=== PATIENT | female | born 1990 | race Two or more races ===

== ENCOUNTER 2020-07-22 22:12 | Emergency (ER) | payer OTHER ==
--- NOTE | 2020-07-22 23:45 | ER Document Report ---
ED Headache - General Chief Complaint: Headache Stated Complaint: PSYCH PROBLEM Time Seen by Provider: 07/22/20 23:44 Primary Care Provider: [facility] [Provider Group] - Follow up as needed - HPI Notes: Patient is a 29 y/o female who presents with headache for the past two weeks. She describes the headache as bitemporal and intermittent. She states during the episodic headaches she experiences blurred vision, slurred speech, and memory difficulties. She has been seen by her primary care provider for this issue and had full labs done which were all unremarkable. She has been taking excedrin with significant relief. She denies headache currently. Patient has an appointment with neurology on 08/15/2020. She also is requesting psych resources as she states the stress from these headaches is becoming too much. She denies suicidal ideation, homicidal ideation, auditory and visual hallucinations. She denies nausea, vomiting, urinary incontinence, fever, chest pain and shortness of breath. (GET FORD) Past Medical History - General Information source: Patient - Social History Smoking Status: Never Smoker Chew tobacco use (# tins/day): No Frequency of alcohol use: None Drug Abuse: None Family History: Reviewed & Not Pertinent Patient has homicidal ideation: No Review of Systems - Review of Systems Constitutional: No symptoms reported EENT: No symptoms reported Cardiovascular: No symptoms reported Respiratory: No symptoms reported Gastrointestinal: No symptoms reported Genitourinary: No symptoms reported Female Genitourinary: No symptoms reported Musculoskeletal: No symptoms reported Skin: No symptoms reported Hematologic/Lymphatic: No symptoms reported Neurological/Psychological: See HPI Physical Exam - Vital signs Vitals: Temp Pulse Resp BP Pulse Ox 98.6 F 74 16 125/80 99 07/22/20 22:43 07/22/20 22:43 07/22/20 22:43 07/22/20 22:43 07/22/20 22:43 - Notes Notes: PHYSICAL EXAMINATION: VITALS: Vitals reviewed and within normal limits. GENERAL: Well-appearing, well-nourished and in no acute distress. HEAD: Atraumatic, normocephalic. EYES: Pupils equal, round, and reactive to light, extraocular movements intact, sclera anicteric, conjunctiva are normal. ENT: Nares patent. Moist mucous membranes. Oropharynx clear without exudates. NECK: Normal range of motion, supple without lymphadenopathy. LUNGS: Breath sounds clear to auscultation bilaterally and equal. No wheezes, rales, or rhonchi. HEART: Regular, rate, and rhythm without murmurs. ABDOMEN: Soft, nontender, normoactive bowel sounds. No guarding, no rebound. No masses appreciated. EXTREMITIES: Normal range of motion, no pitting or edema. No cyanosis. NEUROLOGICAL: Face symmetric. Tongue protrudes midline. Extraocular motions intact. Pupils are 2 mm and equally reactive. Normal speech, normal gait. 5 out of 5 strength in both the distal and proximal upper and lower extremities bilaterally. Sensation is grossly intact throughout. Finger to nose testing normal. Pronator drift normal. PSYCH: Normal mood, normal affect. SKIN: Warm, Dry, normal turgor, no rashes or lesions noted. (GET FORD) Course - Laboratory Results Critical Laboratory Results Reviewed: No Critical Results - Radiology Results Critical Radiology Results Reviewed: No Critical Results - Re-evaluation Re-evalutation: 07/23/20 05:[address] has resulted at this time and is negative for any acute findings. Patient will be discharged from the emergency department. (WANDA PUCKETT) 07/23/20 00:00 Presentation of a headache that appears to be most consistent with tension versus migrainous type headache. Headache was not maximal in onset, patient has no focal neurologic deficits, no nuchal rigidity, vital signs within normal limits, no papilledema, and patient is overall well in appearance. Patient is requesting psych evaluation and offered to see the psych team. However, she was informed that psych is not available overnight and she would have to wait until morning. Patient declines psych consultation at this time as she does not want to have to stay overnight. She does not IVC criteria as she denies SI, HI and hallucinations. Patient given outpatient resources. Head CT negative with no acute findings. Based on clinical history and examination I do not suspect an acute subarachnoid hemorrhage, dural venous sinus thrombosis, acute meningitis, or intercranial mass. I advised that the patient keep her current appointment with neurology on 08/15/20 and continue to take excedrin as needed. Return precautions and follow up instructions given. Patient understands and is in agreement with the plan. She will be discharged home. (GET FORD) - Vital Signs Vital signs: Temp Pulse Resp BP Pulse Ox 98.3 F 79 16 131/89 H 100 07/23/20 05:33 07/23/20 05:33 07/23/20 05:33 07/23/20 05:33 07/23/20 05:33 Discharge - Discharge Clinical Impression: Headache Qualifiers: Headache type: unspecified Headache chronicity pattern: unspecified pattern Intractability: not intractable Qualified Code(s): R51.9 - Headache, unspecified Condition: Stable Disposition: HOME, SELF-CARE Instructions: Headache ([facility]) Referrals: [facility] [Provider Group] - Follow up as needed
--- NOTE | 2020-07-23 04:57 | RADIOLOGY REPORT (SQ) ---
CT head without contrast on 07/23/2020 at 4:15 AM CLINICAL INDICATION: Headache TECHNIQUE: Multiple axial images are obtained throughout the head without the administration of contrast. This exam was performed according to our departmental dose-optimization program, which includes automated exposure control, adjustment of the mA and/or kV according to patient size and/or use of iterative reconstruction technique. Total DLP is 1043.77 mGy*cm. COMPARISON: None FINDINGS: There is no hydrocephalus. There is no CT evidence of acute infarct. There is no hemorrhage. There are no abnormal extra-axial fluid collections. There is no mass, mass effect or midline shift. No bony abnormality is noted. IMPRESSION: No acute intracranial abnormality.
[2020-07-23 05:33] VITALS: BP 131/89
== END 2020-07-23 05:45 | disposition home or self-care (01) ==
LOC: ER 22:12
DX: R51.9 Headache, unspecified (principal)
CPT/HCPCS: 70450; 99284

== ENCOUNTER 2020-08-07 19:26 | Emergency (ER) | payer OTHER ==
--- NOTE | 2020-08-07 20:34 | ER Document Report ---
ED Medical Screen (RME) - General Chief Complaint: Psych Problem Stated Complaint: PYSCH ISSUES Time Seen by Provider: 08/07/20 20:28 Notes: Patient presents complaining of manic episode and insomnia. Patient states she is not able sleep for the past 5 days. Patient was recently started on Latuda 2 weeks ago at a dose of 40 mg a day. Patient states she was discharged from the mental health facility yesterday. Patient states she called her doctor today and advised them that she felt like she was having problems with the Latuda in the told her she could decrease the dose to 20 mg. Patient denies any suicidal homicidal ideation. I have greeted and performed a rapid initial assessment of this patient. A comprehensive ED assessment and evaluation of the patient, analysis of test results and completion of the medical decision making process will be conducted by additional ED providers. Physical Exam - Vital signs Vitals: Temp Pulse Resp BP Pulse Ox 98.3 F 88 16 128/86 H 96 08/07/20 19:35 08/07/20 19:35 08/07/20 19:35 08/07/20 19:35 08/07/20 19:35 - Psychological Associated symptoms: Normal affect, Normal mood Course - Vital Signs Vital signs: Temp Pulse Resp BP Pulse Ox 98.3 F 88 16 128/86 H 96 08/07/20 19:35 08/07/20 19:35 08/07/20 19:35 08/07/20 19:35 08/07/20 19:35
[2020-08-07 21:55] VITALS: BP 118/80
[2020-08-07 22:00] LABS: ABSOLUTE LYMPHOCYTES (AUTO) 2.3 10^3/uL (0.5-4.7); ABSOLUTE MONOCYTES (AUTO) 0.6 10^3/uL (0.1-1.4); EOSINOPHILS % (AUTO) 0.2 % (0-6); HEMATOCRIT 38.1 % (36.0-47.0); HEMOGLOBIN 13.5 g/dL (12.0-15.5); MEAN CORPUSCULAR HEMOGLOBIN 33.1 pg (27.0-33.4); MEAN CORPUSCULAR HGB CONC 35.4 g/dL (32.0-36.0); RED BLOOD COUNT 4.07 10^6/uL (3.72-5.28); TOTAL CELLS COUNTED % (AUTO) 100 %; WHITE BLOOD COUNT 5.9 10^3/uL (4.0-10.5)
[2020-08-07 22:03] LABS: APPEARANCE,URINE CLEAR; BILIRUBIN,URINE NEGATIVE (NEGATIVE); COLOR,URINE YELLOW; GLUCOSE, URINE NEGATIVE (NEGATIVE); KETONES,URINE TRACE mg/dL (NEGATIVE); LEUKOCYTE ESTERASE,URINE NEGATIVE (NEGATIVE); NITRITE,URINE NEGATIVE (NEGATIVE); PROTEIN,URINE NEGATIVE (NEGATIVE); URINE SPECIFIC GRAVITY 1.013; UROBILINOGEN,URINE NEGATIVE mg/dL (<2.0)
[2020-08-07 22:03] LABS: BASOPHILS % (AUTO) 0.4 % (0-2); LYMPHOCYTES % (AUTO) 38.2 % (13-45); MEAN CORPUSCULAR VOLUME 94 fl (80-97); MONOCYTES % (AUTO) 9.8 % (3-13); PLATELET COUNT 238 10^3/uL (150-450); RED CELL DISTRIBUTION WIDTH 12.6 % (11.5-14.0); SEGMENTED NEUTROPHILS % (AUTO) 51.4 % (42-78)
[2020-08-07 22:27] LABS: ALBUMIN 4.4 g/dL (3.5-5.0); ALKALINE PHOSPHATASE 85 U/L (38-126); ANION GAP 7 (5-19); ASPARTATE AMINO TRANSFERASE 28 U/L (14-36); BILIRUBIN,DIRECT 0.1 mg/dL (0.0-0.4); BILIRUBIN,TOTAL 0.4 mg/dL (0.2-1.3); BLOOD UREA NITROGEN 11 mg/dL (7-20); CALCIUM 9.4 mg/dL (8.4-10.2); CARBON DIOXIDE 27 mmol/L (22-30); CHLORIDE 103 mmol/L (98-107); GLUCOSE 109 mg/dL (75-110); POTASSIUM 4.7 mmol/L (3.6-5.0); TOTAL PROTEIN 7.7 g/dL (6.3-8.2)
[2020-08-07 22:29] LABS: ALCOHOL < 10 mg/dL (NONE DETECTED)
[2020-08-07 22:33] LABS: URINE AMPHETAMINES SCREEN NEGATIVE; URINE BARBITURATES SCREEN NEGATIVE; URINE BENZODIAZEPINES SCREEN NEGATIVE; URINE COCAINE SCREEN NEGATIVE; URINE MARIJUANA (THC) SCREEN NEGATIVE; URINE METHADONE SCREEN NEGATIVE; URINE PHENCYCLIDINE SCREEN NEGATIVE
[2020-08-07] MEDS ORDERED: DIPHENHYDRAMINE HCL 50 MG/ML VIAL IM ONE (22:36)
--- NOTE | 2020-08-07 23:04 | ER Document Report ---
ED General - General Chief Complaint: Psych Problem Stated Complaint: PYSCH ISSUES Time Seen by Provider: 08/07/20 20:28 Mode of Arrival: Ambulatory Information source: Patient Notes: Patient presents to the ER for evaluation of insomnia times approximately 5 days. The patient states she was on Seroquel 2 weeks ago but was taken off and placed on Latuda. She states she has been having difficulty sleeping since they took her off of Seroquel. She denies suicidal or homicidal ideation. She denies auditory or visual hallucinations. She is alert and oriented x4 and has good insight. She was just released from a psychiatric facility after a voluntary stay for bipolar disorder. She states she does have an appointment with her psychiatrist tomorrow morning. She is here asking for help to fall asleep. She does not want any other treatment beyond that. Nursing notes reviewed and past medical, social, and family histories reviewed and validated. TRAVEL OUTSIDE OF THE [place] IN LAST 30 DAYS: No - Related Data Allergies/Adverse Reactions: lamotrigine [From Lamictal] Allergy (Severe, Verified 08/07/20 20:39) Home Medications: 20mg latuda. melatonin Past Medical History - General Information source: Patient - Social History Smoking Status: Never Smoker Chew tobacco use (# tins/day): No Frequency of alcohol use: None Drug Abuse: None Lives with: Family Family History: Reviewed & Not Pertinent Patient has suicidal ideation: No Patient has homicidal ideation: No - Past Medical History Cardiac Medical History: Reports: None Pulmonary Medical History: Reports: None EENT Medical History: Reports: None Neurological Medical History: Reports: None Endocrine Medical History: Reports: None Renal/ Medical History: Reports: None Malignancy Medical History: Reports: None GI Medical History: Reports: None Musculoskeletal Medical History: Reports None Skin Medical History: Reports None Psychiatric Medical History: Reports: Hx Bipolar Disorder Traumatic Medical History: Reports: None Infectious Medical History: Reports: None Past Surgical History: Reports: None - Immunizations Immunizations up to date: Yes Hx Diphtheria, Pertussis, Tetanus Vaccination: Yes Review of Systems - Review of Systems Notes: Constitutional: Negative for fever. HENT: Negative for sore throat. Eyes: Negative for visual changes. Cardiovascular: Negative for chest pain. Respiratory: Negative for shortness of breath. Gastrointestinal: Negative for abdominal pain, vomiting or diarrhea. Genitourinary: Negative for dysuria. Musculoskeletal: Negative for back pain. Skin: Negative for rash. Neurological: Negative for headaches, weakness or numbness. 10 point ROS negative except as marked above and in HPI. Physical Exam - Vital signs Vitals: Temp Pulse Resp BP Pulse Ox 98.3 F 88 16 128/86 H 96 08/07/20 19:35 08/07/20 19:35 08/07/20 19:35 08/07/20 19:35 08/07/20 19:35 - Notes Notes: CONSTITUTIONAL: Well appearing in no acute distress SKIN: Warm, dry, and intact without rash EYES: Extraocular movements are grossly intact, clear conjunctiva HENT: Normocephalic, atraumatic, moist mucus membranes NECK: No obvious swelling, normal range of motion PULMONARY: Normal chest rise and fall, no respiratory distress or stridor CARDIOVASCULAR: Regular rate, distal extremities are warm and well perfused NEUROLOGIC: Normal speech, moves all extremities MUSCULOSKELETAL: No gross deformities, atraumatic PSYCHIATRIC: Normal mood and affect. The patient does not appear manic. Course - Vital Signs Vital signs: Temp Pulse Resp BP Pulse Ox 98.4 F 78 18 118/80 98 08/07/20 21:53 08/07/20 21:53 08/07/20 21:53 08/07/20 21:53 08/07/20 21:53 - Laboratory Results Result Diagrams: 08/07/20 21:20 08/07/20 21:20 Laboratory Results Interpreted: 08/07/20 08/07/20 20:50 21:20 Sodium 136.5 L Urine Ketones TRACE H Urine Blood MODERATE H Critical Laboratory Results Reviewed: No Critical Results - Radiology Results Critical Radiology Results Reviewed: No Critical Results Discharge - Discharge Clinical Impression: Insomnia Qualifiers: Insomnia type: unspecified Qualified Code(s): G47.00 - Insomnia, unspecified Condition: Stable Disposition: HOME, SELF-CARE Instructions: Insomnia ([facility]) Additional Instructions: Take Benadryl as needed for sleep. Keep your psychiatric appointment tomorrow.
== END 2020-08-08 00:08 | disposition home or self-care (01) ==
LOC: ER 19:26
DX: G47.00 Insomnia, unspecified (principal)
CPT/HCPCS: 99284; 96372; 36415; 80307 ×2; 84443; 84703; 85025; 80053; 81001; J1200